=== PATIENT | female | born 1995 | race Caucasian/White ===

== ENCOUNTER 2019-04-12 21:25 | Emergency (ER) | payer MEDICAID ==
[~2019-04-12] VITALS: Ht 157.5 cm; Wt 59.0 kg
[2019-04-12 21:25] VITALS: BP 131/84
--- NOTE | 2019-04-12 21:25 | NUR ---
TO BED # 06 AMBULATORY
--- NOTE | 2019-04-12 21:50 | NUR ---
24 Y/O F PRESENTED TO ED WITH C/O LOWER ABDOMINAL PAIN AND VAGINAL BLEEDING [id number]. PT STATED "I HAVE IRREGULAR PERIODS. THEY USUALLY LAST 5-7 DAYS. THIS I'VE BEEN BLEEDING FOR 2 WEEKS AND I NOTICED ALOT OF CLOTS." PER PT CHANGING PADS 3-4TIMES A DAY. 9/10 PAIN, SHARP AND PRESSURE LIKE. PAIN RADIATES TO LOWER BACK. ABDOMEN NON-TENDER. ERMD NOTIFIED. FAMILY AT BEDSIDE. WILL CONTINUE TO MONITOR.
[2019-04-12] MEDS ORDERED: IBUPROFEN 800 MG TAB PO ONE (22:00)
[2019-04-12 22:12] LABS: APPEARANCE,URINE CLEAR (CLEAR); BILIRUBIN,URINE NEGATIVE (NEGATIVE); BLOOD, URINE 2+ (NEGATIVE); COLOR,URINE YELLOW (YELLOW); LEUKOCYTE ESTERASE ,URINE 1+ (NEGATIVE); NITRITE, URINE NEGATIVE (NEGATIVE); UGLUCOSE NEGATIVE (NEGATIVE)
[2019-04-12 22:13] LABS: BASOPHILS % (AUTO) 0.2 % (0.0-2.0); EOSINOPHILS # (AUTO) 0.3 K/uL (0-0.4); EOSINOPHILS % (AUTO) 2.3 % (0.0-4.0); HEMOGLOBIN 12.4 g/dL (12.0-16.0); LYMPHOCYTES # (AUTO) 3.2 K/uL (2.5-16.5); LYMPHOCYTES % (AUTO) 26.8 % (20.5-51.1); MEAN CORPUSCULAR HEMOGLOBIN 30 pg (27-31); MEAN CORPUSCULAR HGB CONC 34 g/dL (33-37); MEAN CORPUSCULAR VOLUME 88.6 fL (80-94); MONOCYTES # (AUTO) 1.1 K/uL (0.8-1.0); MONOCYTES % (AUTO) 9.3 % (1.7-9.3); NEUTROPHILS # (AUTO) 7.3 K/uL (1.8-7.7); NEUTROPHILS % (AUTO) 61.4 % (42.2-75.2); PLATELET COUNT (AUTO) 279 K/uL (140-450); RED BLOOD CELL COUNT(AUTO) 4.18 MIL/uL (4.20-5.40); RED CELL DISTRIBUTION WIDTH 13.4 % (11.6-13.7); WHITE BLOOD COUNT (AUTO) 11.8 K/uL (4.8-10.8)
[2019-04-12 22:20] VITALS: BP 131/84
[2019-04-12 22:26] LABS: ANION GAP 11.5 (8-16); CARBON DIOXIDE 28.5 mmol/L (21-32); CREATININE 0.8 mg/dL (0.6-1.3)
--- NOTE | 2019-04-12 22:32 | NUR ---
Ultrasound at bedside.
[2019-04-12 22:37] LABS: ALBUMIN 3.7 g/dL (3.4-5.0); TOTAL BILIRUBIN 0.2 mg/dL (0.0-1.0)
--- NOTE | 2019-04-12 23:18 | NUR ---
Patient discharged with v/s stable. Written and verbal after care instructions given and explained. Patient alert, oriented and verbalized understanding of instructions. Ambulatory with steady gait. All questions addressed prior to discharge. ID band removed. Patient advised to follow up with PMD. Rx of Cipro and Ibuprofen given. Patient educated on indication of medication including possible reaction and side effects. Opportunity to ask questions provided and answered.
== END 2019-04-12 23:18 | disposition home or self-care (01) ==
LOC: MED 21:25
DX: N39.0 Urinary tract infection, site not specified (principal); N93.8 Other specified abnormal uterine and vaginal bleeding
CPT/HCPCS: 36415; 76856; 80053; 81001; 81025; 85025; 87086; 99284; Q0092

== ENCOUNTER 2020-02-18 20:24 | Emergency (ER) | payer SELFPAY ==
--- NOTE | 2020-02-18 20:45 | NUR ---
PT CALLED FROM LOBBY. NO RESPONSE.
--- NOTE | 2020-02-18 21:00 | NUR ---
PT CALLED FROM LOBBY. NO RESPONSE.
--- NOTE | 2020-02-18 21:08 | NUR ---
CALLED OUTSIDE. NO RESPONSE. PT LWBS.
== END 2020-02-18 20:45 | disposition left against medical advice (07) ==
LOC: MED 20:24
DX: Z53.21 Procedure and treatment not carried out due to patient leaving prior to being seen by health care provider (principal)

== ENCOUNTER 2021-08-19 23:05 | Inpatient (IN) | payer OTHER, SELFPAY ==
[~2021-08-19] VITALS: Ht 157.5 cm; Wt 88.5 kg
[2021-08-19] MEDS ORDERED: OXYTOCIN 10 UNITS/ML VIAL ONE (23:30)
[2021-08-19] MEDS ORDERED: IBUPROFEN 600 MG TAB PO PRN (23:55)
[2021-08-19] MEDS ORDERED: BENZOCAINE/MENTHOL 20%-0.5% 60 GM CAN TP PRN (23:55)
[2021-08-19] MEDS ORDERED: METHYLERGONOVINE 0.2 MG/ML AMP IM PRN (23:55)
[2021-08-19] MEDS ORDERED: IBUPROFEN 800 MG TAB PO PRN (23:55)
[2021-08-19] MEDS ORDERED: OXYTOCIN 10 UNITS/ML VIAL IM PRN (23:55)
[2021-08-19] MEDS ORDERED: MEASLES, MUMPS, AND RUBELLA 1 VIAL SQVAC ONE (23:55)
[2021-08-19] MEDS ORDERED: bisacodyL 5 MG TABEC PO PRN (23:55)
[2021-08-19] MEDS ORDERED: METHYLERGONOVINE 0.2 MG TAB PO PRN (23:55)
[2021-08-19] MEDS ORDERED: DOCUSATE SODIUM 100 MG GELCAP PO PRN (23:55)
[2021-08-19] MEDS ORDERED: SIMETHICONE 80 MG TAB.CHEW PO PRN (23:55)
[2021-08-20] MEDS ORDERED: LACTATED RINGERS 1,000 ML IV SCH
[2021-08-20] MEDS ORDERED: OXYTOCIN 20 UNITS in NACL 0.9% 1,000 ML IV ONE ×2
[2021-08-20] MEDS ORDERED: METHYLERGONOVINE 0.2 MG/ML AMP IM PRN
[2021-08-20 00:28] LABS: BASOPHILS % (AUTO) 0.1 % (0.0-2.0); EOSINOPHILS # (AUTO) 0.1 K/uL (0-0.4); EOSINOPHILS % (AUTO) 0.4 % (0.0-4.0); HEMATOCRIT 25.4 % (36-48); HEMOGLOBIN 7.9 g/dL (12.0-16.0); LYMPHOCYTES # (AUTO) 1.9 K/uL (2.5-16.5); LYMPHOCYTES % (AUTO) 13.4 % (20.5-51.1); MEAN CORPUSCULAR HEMOGLOBIN 20 pg (27-31); MEAN CORPUSCULAR HGB CONC 31 g/dL (33-37); MEAN CORPUSCULAR VOLUME 64.5 fL (80-94); MONOCYTES # (AUTO) 0.6 K/uL (0.8-1.0); MONOCYTES % (AUTO) 4.3 % (1.7-9.3); NEUTROPHILS # (AUTO) 11.3 K/uL (1.8-7.7); NEUTROPHILS % (AUTO) 81.8 % (42.2-75.2); PLATELET COUNT (AUTO) 314 K/uL (140-450); RED BLOOD CELL COUNT(AUTO) 3.94 MIL/uL (4.20-5.40); RED CELL DISTRIBUTION WIDTH 19.6 % (11.6-13.7); WHITE BLOOD COUNT (AUTO) 13.9 K/uL (4.8-10.8)
[2021-08-20 00:39] VITALS: BP 119/56
[2021-08-20 01:07] LABS: ALBUMIN 2.4 g/dL (3.4-5.0); ANION GAP 15.9 (8-16); CARBON DIOXIDE 19.9 mmol/L (21-32); CREATININE 0.7 mg/dL (0.6-1.3); POTASSIUM 3.8 mmol/L (3.5-5.1); TOTAL BILIRUBIN 0.2 mg/dL (0.0-1.0)
[2021-08-20 02:14] LABS: APPEARANCE,URINE CLOUDY (CLEAR); BILIRUBIN,URINE NEGATIVE (NEGATIVE); BLOOD, URINE 3+ (NEGATIVE); COLOR,URINE RED (YELLOW); LEUKOCYTE ESTERASE ,URINE TRACE (NEGATIVE); NITRITE, URINE NEGATIVE (NEGATIVE); UGLUCOSE NEGATIVE (NEGATIVE)
[2021-08-20 02:35] LABS: BARBITURATE, URINE NEGATIVE ng/ml (NEG <=200); BENZODIAZEPINE, URINE NEGATIVE ng/mL (NEG <=200); CANNABINOID, URINE NEGATIVE ng/mL (NEG <=50); COCAINE, URINE NEGATIVE ng/mL (NEG <=300); OPIATE, URINE NEGATIVE ng/mL (NEG <=2000); PHENCYCLIDINE SCREEN,URINE NEGATIVE ng/mL (NEG <=25)
[2021-08-20 02:37] LABS: RBC,URINE TOO NUMEROUS TO COUN /HPF (0-5)
[2021-08-20] MEDS ORDERED: SODIUM FERRIC GLUCONATE 125 MG in NACL 0.9% 100 ML IV SCH (06:50)
[2021-08-20 08:32] LABS: HEMATOCRIT 23.4 % (36-48); HEMOGLOBIN 7.2 g/dL (12.0-16.0)
[2021-08-20] MEDS ORDERED: FERROUS SULFATE 325 MG TABEC PO SCH (17:00)
== END 2021-08-20 19:25 | disposition home or self-care (01) | DRG 560 ==
LOC: MLD 23:05 → MFCC 08-20 02:14
PROVIDERS: ADMIT Obstetrics & Gynecology; ATTEND Obstetrics & Gynecology
PROC: 10E0XZZ Delivery of Products of Conception, External Approach (ICD-10-PCS; principal; 2021-08-19)
DX: O99.824 Streptococcus B carrier state complicating childbirth (principal); Z37.0 Single live birth; D62 Acute posthemorrhagic anemia; O62.3 Precipitate labor; Z20.822 Contact with and (suspected) exposure to COVID-19; O99.02 Anemia complicating childbirth; O70.0 First degree perineal laceration during delivery; Z3A.39 39 weeks gestation of pregnancy
CPT/HCPCS: 36415; 59409; 80053; 80305; 81001; 85018; 85025; 86592; 86762; 86886; 86900; 86901; 87086; 87340; 87653-90; J2590; J2916; J7030